=== PATIENT | female | born 1960 | race Two or more races ===

== ENCOUNTER 2018-01-01 22:30 | Inpatient (IN) | payer OTHER, MEDICAID ==
[2018-01-02] MEDS ORDERED: LORazepam 0.5 MG TAB PO PRN (02:50)
[2018-01-02] MEDS ORDERED: MAGNESIUM HYDROXIDE 30 ML UDCUP PO PRN (02:50)
[2018-01-02] MEDS ORDERED: MAG HYDROX/AL HYDROX/SIMETH 30 ML UDCUP PO PRN (02:50)
[2018-01-02] MEDS ORDERED: OLANZapine DISINTEGR 5 MG TAB PO PRN (02:50)
[2018-01-02] MEDS ORDERED: NICOTINE POLACRILEX 2 MG GUM B PRN (02:50)
[2018-01-02] MEDS: ACETAMINOPHEN 325 MG TAB PO PRN (03:32)
[2018-01-02] MEDS ORDERED: PALIPERIDONE 3 MG TAB.ER PO SCH (10:30)
[2018-01-02] MEDS: risperiDONE 1 MG TAB PO SCH ×2 (12:33→20:47)
--- NOTE | 2018-01-02 13:42 | BCON ---
[f rep st] BEHAVIORAL HEALTH CONSULTATION DATE OF CONSULTATION: 01/02/2018 REASON FOR REFERRAL: Medical clearance for inpatient behavioral health stay. HISTORY OF PRESENT ILLNESS: This patient presented with hearing voices and suicidality to the [facility] in [place]. She had been noncompliant with medications for several months. She was evaluated there and transferred to [facility] unit for further psychiatric care. She complains of continued to hear voices and she reports that she hurts everywhere, including inside. PAST MEDICAL HISTORY: 1. Schizophrenia. 2. Diabetes mellitus type 2. 3. Hypertension. 4. Dyslipidemia. 5. Seizure disorder. PAST SURGICAL HISTORY: She has had a cholecystectomy. She has had ankle surgery, including removal of screws. She has had a hysterectomy. MEDICATIONS: She had been noncompliant, but she has some prescriptions from as recently as August for: 1. Atorvastatin 20 mg at bedtime. 2. Lisinopril 10 mg daily. 3. Risperidone 1 mg at bedtime. 4. Metformin 1000 mg twice daily. 5. Divalproex 1000 mg twice daily. ALLERGIES: There are no known drug allergies. SOCIAL HISTORY: She reportedly has a developmental delay and had been living in a snf, but more recently she was homeless. FAMILY HISTORY: Noncontributory. REVIEW OF SYSTEMS: Other than in HPI, she reports a reduced appetite. She denies nausea, vomiting, constipation, or diarrhea. Review of systems somewhat limited by tearfulness and possibly responding to internal stimuli. Otherwise, a 10-point review of systems is negative. PHYSICAL EXAM: VITAL SIGNS: Blood pressure is 130/65, heart rate is 73, respiratory rate is 14, oxygen saturation is 97% on room air. Her weight is 77.3 kg for a body mass index of 29.2. GENERAL: This is an unkempt, obese woman, appears her chronologic age, dressed in a green hospital smock, cooperative, and in [id number] distress with tearfulness. HEENT: Extraocular movements are intact. Pupils are equal, round, reactive to light. Mucous membranes are moist. Dentition is in poor condition. She has an uncrowded airway, Mallampati class 2. NECK: Supple. HEART: There is a regular rate and rhythm with no murmurs, rubs, or gallops. LUNGS: Clear to auscultation bilaterally. ABDOMEN: Soft, nontender, nondistended with normoactive bowel sounds. EXTREMITIES: There is no cyanosis, clubbing, or edema. NEUROLOGIC: She is alert. Orientation was not checked. She has no focal weakness. Sensation is intact to light touch and cranial nerves 2-12 are grossly intact. LABORATORY STUDIES: From [facility]: Comprehensive metabolic profile revealed a slightly high chloride at 110; otherwise, renal function, electrolytes, and liver function tests were normal. Beta hCG was negative for . CBC was normal, though the differential showed a slightly elevated neutrophil count at 7.69. Toxicology screen in the serum was negative for alcohol, and the urine was negative for any substances of abuse. Urine specific gravity was 1.03, indicating possible dehydration, and her BUN to creatinine ratio was slightly above 20, supporting the possibility of dehydration. ASSESSMENT/RECOMMENDATIONS: 1. Mental health issues pending further evaluation and management per Psychiatry and the mental health team. 2. Diabetes mellitus type 2. Consider reinstating metformin, though her labs did not show an elevated blood sugar at 10:45 in the morning yesterday. With possible dehydration, she may also have had reduced oral intake and so this may represent a fasting glucose and not pre or postprandial. Consider reinstituting metformin a 1000 mg twice daily assuming that her oral intake recovers. 3. Dyslipidemia. Long-term, it would be in her best interest to resume atorvastatin, but similar to consideration of resuming metformin would await normalization of her p.o. intake and discharge plan to a stable environment where she would be able to be compliant. 4. Possible history of seizure disorder with a previous prescription for divalproex. Advise further obtaining outside records to determine whether this was a seizure disorder versus use of valproic acid for behavioral symptom management. Discussed with nurse. I see no medical contraindications to this patient's continued stay on the inpatient behavioral health unit or to any psychiatric medications or procedures. Thank you very much for including me in the care of this patient and please do not hesitate to contact me or the hospitalist service should there be need for further medical evaluation. /[id number]/MODL MTDD
[2018-01-02] MEDS: ATORVASTATIN CALCIUM 20 MG TAB PO SCH (15:19)
[2018-01-02] MEDS: DIVALPROEX NA 500 MG TAB PO SCH ×2 (15:19→20:47)
[2018-01-02] MEDS: metFORMIN HCL 500 MG TAB PO SCH ×2 (15:19→20:47)
[2018-01-02] MEDS: LISINOPRIL 10 MG TAB PO SCH (15:32)
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
[2018-01-04] MEDS: DIVALPROEX NA 500 MG TAB PO SCH ×3 (08:06→19:53)
[2018-01-04] MEDS: ATORVASTATIN CALCIUM 20 MG TAB PO SCH ×2 (08:06→08:49)
[2018-01-04] MEDS: LISINOPRIL 10 MG TAB PO SCH ×2 (08:06→08:49)
[2018-01-04] MEDS: metFORMIN HCL 500 MG TAB PO SCH ×4 (08:07→19:53)
[2018-01-04] MEDS: risperiDONE 1 MG TAB PO SCH ×3 (08:09→19:53)
--- NOTE | 2018-01-04 15:49 | ASMTBHDC ---
Notes Note: Notes: CC spoke with [facility] Liaison (O# [phone]), who reported that [facility] is not excepting new patients at this time. CC to seek outpatient follow up treatment appointments and offer resources to patient for housing support. Date Signed: 01/04/2018 03:48 PM Electronically Signed By:Joan Obrien
--- NOTE | 2018-01-04 16:11 | SOAPPROG ---
SOAP Progress Note Assessment/Plan: LATE ENTRY FOR 01/04/18 DUE TO MEDITECH DOWNTIME Assessment: Schizophrenia. Patient is improving (see subjective/objective note). Continues to report auditory hallucinations and appears to be attending to internal stimuli. Patient could benefit from continued inpatient hospitalization for crisis stabilization, safety, and medication evaluation. Plan: Review psychotropic medication treatment informed consent and recommendations. After reviewing treatment options, risk and benefits of treatment, patient agrees to continue medications. No medication changes at this time as more time is needed to determine ongoing tolerability and efficacy. Plan is to continue to observe patient for response and side effects from medications, and ongoing monitoring and evaluation. Next steps are for patient to meet with healthcare network consultant to plan a safe discharge plan and establish outpatient services for ongoing treatment. Consider discharge on Tuesday if patient is in stable condition, safe, and has a safe discharge plan. PSYCHOTROPIC MEDICATION TREATMENT INFORMED CONSENT and RECOMMENDATIONS: Review nature of condition, diagnosis, and prognosis. Review nature and purpose of psychotropic medication treatment. Review type of psychotropic medications being ordered. Review risk and benefits of psychotropic medication treatment. Review probable length of time patient will need to take medications. Review risk and benefits of not undergoing psychotropic medication treatment. Review alternative treatments to psychotropic medications. Review psychotropic medications contraindications, drug-drug interactions, side effects, and importance of reporting any side effects to a psychiatric provider or nurse during inpatient hospitalization, and upon discharge to patients psychiatric outpatient provider, primary care provider, or other health personal care worker. Review importance of asking a nurse, psychiatric provider, or primary care provider any questions or problems concerning the psychotropic medications. Verify patient understands the information that has been provided, and understands, accepts, and agrees to psychotropic medications. Review patients safety plan and importance of patient to report to staff while hospitalized if patient is ever a danger to self/others, or unable to care for self, and upon discharge, the importance for patient to contact [facility] or [facility], or go to the nearest emergency room, if patient is ever a danger to self/others, or unable to care for self. Recommend that upon discharge patient establish medication management treatment with a psychiatric provider, establishes routine therapy appointments, and follow-up with primary care provider. Verify patient understands and agrees to these recommendations. 01/04/18 16:11 Subjective: Following up with patient for evaluation of psychosis and safety. Patient reports, Doing a little bit better. Patient expresses the following psychiatric symptoms continued auditory hallucinations, and reports has improved since admission. Patient states taking medications as prescribed, tolerating medications with no report of side effects, and with fair response for psychotic symptoms. Patient states she has been attending groups. Patient describes sleeping about 8 hours of sound and uninterrupted sleep last night and reports feeling rested. The patient describes her appetite as good, and describes eating all meals. Patient reports her mood as okay and states this is an improvement since admission. Patient denies SI/HI and reports last having SI prior to her admission. Patient reports continued auditory hallucinations, and denies command hallucinations. Objective: Vital Signs Temp Pulse Resp BP Pulse Ox 36.6 C 81 14 142/65 H 95 01/03/18 06:00 01/03/18 06:00 01/03/18 06:00 01/03/18 06:00 01/03/18 06:00 Treatment team report: Consulted with treatment team staff for update on patients progress in treatment. Nurses report patient is taking medications as prescribed, is tolerating medications without report of side effects. Nurses report patient has expressed the following psychiatric symptoms auditory hallucinations. Staff reports patient slept 9 hours last night and slept throughout the night. Patient is eating all meals. Patient denies SI/HI, visual hallucinations, and delusions. Patient does not express any other psychiatric symptoms at this time. Staff reports they have noticed an improvement in the patients presentation since admission, most notable attending to ADLs and no longer tearful. With regard to discharge planning, family day care worker reports he is working on setting up referrals and resources for patient as she will likely discharge homeless. Patient is currently improving, tolerating medications with no reports of side effects, and with fair response for symptoms. Patient shows slight treatment response as of today. Patient continues to exhibit symptoms of psychosis-- notably auditory hallucinations. Symptoms continue at less frequency and less intensity, and some improvement noted. The patient is a well-nourished, female, looking older than chronological age. Attire is appropriate, dress is hospital garb, and is neat. Grooming status is disheveled. Ambulation is independent. Gait is normal and coordinated. Posture is normal. Eye contact is appropriate. Motor activity is appropriate. Attitude is cooperative. Patient appears attentive and relates well to this interviewer. Language production is unspontaneous and requires several prompts in order to elicit answers to interview questions. R/R/V are normal. Rate is hesitant, slowed. Latency of response is prolonged, with sad tone, and low volume, and monosyllabic. Articulation is mumbled with poverty of speech noted likely negative symptoms of schizophrenia. Patient reports mood as okay with blunted and constricted affect that is incongruent with mood. Patients thought process is linear and logical, with some thought blocking. Associations are connected. The flow is goal fragmented with thought blocking. Patient does not report suicidal/homicidal thoughts, ideas, or plans. Patient reports auditory, denies visual hallucinations. Patient denies delusions. Patient does appear to be attending to internal stimuli. Patient is oriented to person. Attention and concentration are adequate. Insight is poor. Judgment is poor. Cognitive: unable to appropriately assess at this time. Patient does not report undesirable side effects from the medications. - Time Spent With Patient Time Spent With Patient: 20 minutes, met with patient individually. - Pending Discharge Pending Discharge Within 24 Hours: No Pending Discharge Within 48 Hours: No ICD10 Worksheet Patient Problems: Problems Problem Status Onset Homelessness Acute Schizophrenia, acute Acute
--- NOTE | 2018-01-04 16:20 | SOAPPROG ---
SOAP Progress Note Assessment/Plan: Assessment: Schizophrenia. Patient is improving (see subjective/objective note). Continues to report auditory hallucinations and appears to be attending to internal stimuli. Patient could benefit from continued inpatient hospitalization for crisis stabilization, safety, and medication evaluation. Plan: Review psychotropic medication treatment informed consent and recommendations. After reviewing treatment options, risk and benefits of treatment, patient agrees to continue medications. No medication changes at this time as more time is needed to determine ongoing tolerability and efficacy. Plan is to continue to observe patient for response and side effects from medications, and ongoing monitoring and evaluation. Next steps are for patient to meet with social worker palliative care to plan a safe discharge plan and establish outpatient services for ongoing treatment. Consider discharge on Tuesday if patient is in stable condition, safe, and has a safe discharge plan. PSYCHOTROPIC MEDICATION TREATMENT INFORMED CONSENT and RECOMMENDATIONS: Review nature of condition, diagnosis, and prognosis. Review nature and purpose of psychotropic medication treatment. Review type of psychotropic medications being ordered. Review risk and benefits of psychotropic medication treatment. Review probable length of time patient will need to take medications. Review risk and benefits of not undergoing psychotropic medication treatment. Review alternative treatments to psychotropic medications. Review psychotropic medications contraindications, drug-drug interactions, side effects, and importance of reporting any side effects to a psychiatric provider or nurse during inpatient hospitalization, and upon discharge to patients psychiatric outpatient provider, primary care provider, or other health healthcare prof. Review importance of asking a nurse, psychiatric provider, or primary care provider any questions or problems concerning the psychotropic medications. Verify patient understands the information that has been provided, and understands, accepts, and agrees to psychotropic medications. Review patients safety plan and importance of patient to report to staff while hospitalized if patient is ever a danger to self/others, or unable to care for self, and upon discharge, the importance for patient to contact [facility] or [facility], or go to the nearest emergency room, if patient is ever a danger to self/others, or unable to care for self. Recommend that upon discharge patient establish medication management treatment with a psychiatric provider, establishes routine therapy appointments, and follow-up with primary care provider. Verify patient understands and agrees to these recommendations. 01/04/18 16:19 Subjective: Following up with patient for evaluation of psychosis and safety. Patient reports, Not doing too good today. Patient expresses the following psychiatric symptoms continued auditory hallucinations, and reports has improved a little bit since admission. Patient states taking medications as prescribed, tolerating medications with no report of side effects, and with fair response for psychotic symptoms. Patient states she has been attending groups. Patient describes sleeping about 8 hours of sound and uninterrupted sleep last night and reports feeling rested. The patient describes her appetite as good, and describes eating all meals. Patient reports her mood as okay and states this is an improvement since admission. Patient denies SI/HI and reports last having SI prior to her admission. Patient reports continued auditory hallucinations, and denies command hallucinations. Objective: Vital Signs Temp Pulse Resp BP Pulse Ox 36.6 C 81 14 142/65 H 95 01/03/18 06:00 01/03/18 06:00 01/03/18 06:00 01/03/18 06:00 01/03/18 06:00 Treatment team report: Consulted with treatment team staff for update on patients progress in treatment. Nurses report patient is taking medications as prescribed, is tolerating medications without report of side effects. Nurses report patient has expressed the following psychiatric symptoms auditory hallucinations. Staff reports patient slept 9 hours last night and slept throughout the night. Patient is eating all meals. Patient denies SI/HI, visual hallucinations, and delusions. Patient does not express any other psychiatric symptoms at this time. Staff reports they have noticed an improvement in the patients presentation since admission, most notable attending to ADLs and no longer tearful. With regard to discharge planning, career specialist reports he is working on setting up referrals and resources for patient as she will likely discharge homeless. Patient is currently improving, tolerating medications with no reports of side effects, and with fair response for symptoms. Patient shows slight treatment response as of today. Patient continues to exhibit symptoms of psychosisnotably auditory hallucinations. Symptoms continue at less frequency and less intensity, and some improvement noted. The patient is a well-nourished, female, looking older than chronological age. Attire is appropriate, dress is hospital garb, and is neat. Grooming status is disheveled. Ambulation is independent. Gait is normal and coordinated. Posture is normal. Eye contact is appropriate. Motor activity is appropriate. Attitude is cooperative. Patient appears attentive and relates well to this interviewer. Language production is unspontaneous and requires several prompts in order to elicit answers to interview questions. R/R/V are normal. Rate is hesitant, slowed. Latency of response is prolonged, with sad tone, and low volume, and monosyllabic. Articulation is mumbled with poverty of speech noted likely negative symptoms of schizophrenia. Patient reports mood as okay with blunted and constricted affect that is incongruent with mood. Patients thought process is linear and logical, with some thought blocking. Associations are connected. The flow is goal fragmented with thought blocking. Patient does not report suicidal/homicidal thoughts, ideas, or plans. Patient reports auditory, denies visual hallucinations. Patient denies delusions. Patient does appear to be attending to internal stimuli. Patient is oriented to person. Attention and concentration are adequate. Insight is poor. Judgment is poor. Cognitive: unable to appropriately assess at this time. Patient does not report undesirable side effects from the medications. - Time Spent With Patient Time Spent With Patient: 30 minutes, met with patient individually. - Pending Discharge Pending Discharge Within 24 Hours: No Pending Discharge Within 48 Hours: No ICD10 Worksheet Patient Problems: Problems Problem Status Onset Homelessness Acute Schizophrenia, acute Acute
[2018-01-04] MEDS: LORazepam 0.5 MG TAB PO PRN (18:16)
[2018-01-05] MEDS: DIVALPROEX NA 500 MG TAB PO SCH ×2 (08:07→19:58)
[2018-01-05] MEDS: metFORMIN HCL 500 MG TAB PO SCH ×2 (08:07→19:59)
[2018-01-05] MEDS: risperiDONE 1 MG TAB PO SCH (08:07)
[2018-01-05] MEDS: ATORVASTATIN CALCIUM 20 MG TAB PO SCH (08:08)
[2018-01-05] MEDS: LISINOPRIL 10 MG TAB PO SCH (08:08)
[2018-01-05] MEDS ORDERED: risperiDONE 2 MG TAB PO ONE (11:01)
--- NOTE | 2018-01-05 11:13 | SOAPPROG ---
SOAP Progress Note Assessment/Plan: Assessment: Schizophrenia. Patient is improving (see subjective/objective note). Continues to report auditory hallucinations and appears to be attending to internal stimuli. Patient could benefit from continued inpatient hospitalization for crisis stabilization, safety, and medication evaluation. Plan: Review psychotropic medication treatment informed consent and recommendations. After reviewing treatment options, risk and benefits of treatment, patient agrees to continue medications with following changes: increase Risperidone HS dose to 2 mg. No medication changes at this time as more time is needed to determine ongoing tolerability and efficacy. Plan is to continue to observe patient for response and side effects from medications, and ongoing monitoring and evaluation. Next steps are for patient to meet with caretaker grounds to plan a safe discharge plan and establish outpatient services for ongoing treatment. Consider discharge on Tuesday if patient is in stable condition, safe, and has a safe discharge plan. PSYCHOTROPIC MEDICATION TREATMENT INFORMED CONSENT and RECOMMENDATIONS: Review nature of condition, diagnosis, and prognosis. Review nature and purpose of psychotropic medication treatment. Review type of psychotropic medications being ordered. Review risk and benefits of psychotropic medication treatment. Review probable length of time patient will need to take medications. Review risk and benefits of not undergoing psychotropic medication treatment. Review alternative treatments to psychotropic medications. Review psychotropic medications contraindications, drug-drug interactions, side effects, and importance of reporting any side effects to a psychiatric provider or nurse during inpatient hospitalization, and upon discharge to patients psychiatric outpatient provider, primary care provider, or other health care giver. Review importance of asking a nurse, psychiatric provider, or primary care provider any questions or problems concerning the psychotropic medications. Verify patient understands the information that has been provided, and understands, accepts, and agrees to psychotropic medications. Review patients safety plan and importance of patient to report to staff while hospitalized if patient is ever a danger to self/others, or unable to care for self, and upon discharge, the importance for patient to contact [facility] or [facility], or go to the nearest emergency room, if patient is ever a danger to self/others, or unable to care for self. Recommend that upon discharge patient establish medication management treatment with a psychiatric provider, establishes routine therapy appointments, and follow-up with primary care provider. Verify patient understands and agrees to these recommendations. 01/05/18 11:12 Subjective: Following up with patient for evaluation of psychosis and safety. Patient reports, Okay. Patient expresses the following psychiatric symptoms continued auditory hallucinations, and reports has improved since admission. Patient states taking medications as prescribed, tolerating medications with no report of side effects, and with fair response for psychotic symptoms. Patient states she has been attending groups. Patient describes sleeping about 8 hours of sound and uninterrupted sleep last night and reports feeling rested. The patient describes her appetite as good, and describes eating all meals. Patient reports her mood as okay and states this is an improvement since admission. Patient denies SI/HI and reports last having SI prior to her admission. Patient reports continued auditory hallucinations (improved since admission), and denies command hallucinations. Objective: Vital Signs Temp Pulse Resp BP Pulse Ox 36.7 C 80 15 98/57 L 95 01/05/18 00:30 01/05/18 00:30 01/05/18 00:30 01/05/18 00:30 01/05/18 00:30 Treatment team report: Consulted with treatment team staff for update on patients progress in treatment. Nurses report patient is taking medications as prescribed, is tolerating medications without report of side effects. Nurses report patient has expressed the following psychiatric symptoms auditory hallucinations. Staff reports patient slept 9 hours last night and slept throughout the night. Patient is eating all meals. Patient denies SI/HI, visual hallucinations, and delusions. Patient does not express any other psychiatric symptoms at this time. Staff reports they have noticed an improvement in the patients presentation since admission, most notable attending to ADLs (patient is showering, dressing, eating meals, and interacting with staff) and no longer tearful. With regard to discharge planning, toddler caregiver reports he is working on setting up referrals and resources including placement for respite bed for patient as she will likely discharge homeless. Patient is currently improving, tolerating medications with no reports of side effects, and with fair response for symptoms. Patient shows slight treatment response as of today. Patient continues to exhibit symptoms of psychosisnotably auditory hallucinations. Symptoms continue at less frequency and less intensity, and some improvement noted. The patient is a well-nourished, female, looking older than chronological age. Attire is appropriate, dress is hospital garb, and is neat. Grooming status is disheveled. Ambulation is independent. Gait is normal and coordinated. Posture is normal. Eye contact is appropriate. Motor activity is appropriate. Attitude is cooperative. Patient appears attentive and relates well to this interviewer. Language production is unspontaneous and requires several prompts in order to elicit answers to interview questions. R/R/V are normal. Rate is hesitant, slowed. Latency of response is prolonged, with sad tone, and low volume, and monosyllabic. Articulation is mumbled with poverty of speech noted likely negative symptoms of schizophrenia. Patient reports mood as okay with blunted and constricted affect that is incongruent with mood. Patients thought process is linear and logical, with some thought blocking. Associations are connected. The flow is goal fragmented with thought blocking. Patient does not report suicidal/homicidal thoughts, ideas, or plans. Patient reports auditory, denies visual hallucinations. Patient denies delusions. Patient does appear to be attending to internal stimuli. Patient is oriented to person. Attention and concentration are adequate. Insight is poor. Judgment is poor. Cognitive: unable to appropriately assess at this time. Patient does not report undesirable side effects from the medications. - Time Spent With Patient Time Spent With Patient: 30 minutes, met with patient individually. - Pending Discharge Pending Discharge Within 24 Hours: No Pending Discharge Within 48 Hours: No ICD10 Worksheet Patient Problems: Problems Problem Status Onset Homelessness Acute Schizophrenia, acute Acute
--- NOTE | 2018-01-05 13:50 | ASMTBHDC ---
Notes Note: Notes: CC speaks with Bonita Lundy , client's CW from [facility] regarding client's bed, etc. She noted that client could come back to stay and would have a bed available for her tomorrow. Client indicated that she would like to go back to [facility] to stay, etc. She noted, "if she comes earlier the better." CC notified [facility] [employer] and will coordinate D/C tomorrow. Clt will be given [facility] bus pass to get to [place] and will follow up with her CW, who will assist with follow up mental health and health services, etc. CC provided all necessary contact information to CW, etc. Plan to D/C tomorrow to [facility] before noon. Date Signed: 01/05/2018 01:50 PM Electronically Signed By:Rakesh Deluca
[2018-01-05] MEDS: ACETAMINOPHEN 325 MG TAB PO PRN (17:20)
[2018-01-05] MEDS: LORazepam 0.5 MG TAB PO PRN (17:20)
[2018-01-05] MEDS ORDERED: risperiDONE 2 MG TAB PO SCH ×2 (21:00)
[2018-01-06 06:49] VITALS: BP 127/59
[2018-01-06] MEDS: metFORMIN HCL 500 MG TAB PO SCH (08:24)
[2018-01-06] MEDS: ATORVASTATIN CALCIUM 20 MG TAB PO SCH (08:24)
[2018-01-06] MEDS: DIVALPROEX NA 500 MG TAB PO SCH (08:24)
[2018-01-06] MEDS: LISINOPRIL 10 MG TAB PO SCH (08:24)
[2018-01-06] MEDS ORDERED: risperiDONE 1 MG TAB PO SCH (09:00)
--- NOTE | 2018-01-06 11:27 | ASDISCHSUM ---
Discharge Information Plan Status:Psych Placement/Petitioned Medically Cleared to Leave: Discharge Date:01/06/2018 10:56 AM CM D/C Disposition:Other (Not listed) ADT D/C Disposition:Home, Routine, Self-Care Projected Discharge Date:01/06/2018 02:00 PM Transportation at D/C:Family Discharge Delay Reason: Follow-Up Date:01/06/2018 Discharge Slot:1 - 8:01 am - 12:00 noon Final Diagnosis: Placement Information Referral Type:Outpatient Center/Clinic Referral ID:[id number] Provider Name:[facility] Melida Christensen Address 1:[address]. Phone Number: Address 2: Fax Number: City:[place] Selection Factors: State:[place] Patient Contact Information Contact Name:GERARDOTIRSOSTEPHANIAURY Relationship:Father Address:[address] Home Phone: City:[place] Alternate Phone: [facility]/Zip Code:[place] [address] Email: Financial Information Financial Class:Medicare Primary Plan Desc:[facility]ICARE [facility] INPATIENT Primary Plan Number:[id number] Secondary Plan Desc:[place] Secondary Plan Number:[id number] Assessment Information Behavioral Health Discharge Planning Note Notes Note: Notes: CC spoke with [facility] Liaison (O# [phone]), who reported that [facility] is not excepting new patients at this time. CC to seek outpatient follow up treatment appointments and offer resources to patient for housing support. Date Signed: 01/04/2018 03:48 PM Electronically Signed By:Joan Obrien [facility] Discharge Planning Note Notes Note: Notes: CC speaks with Bonita Lundy , client's CW from [facility] regarding client's bed, etc. She noted that client could come back to stay and would have a bed available for her tomorrow. Client indicated that she would like to go back to [facility] to stay, etc. She noted, "if she comes earlier the better." CC notified OUTREACH ANALYST and will coordinate D/C tomorrow. Clt will be given Regional bus pass to get to [place] and will follow up with her CW, who will assist with follow up mental health and health services, etc. CC provided all necessary contact information to CW, etc. Plan to D/C tomorrow to [facility] before noon. Date Signed: 01/05/2018 01:50 PM Electronically Signed By:Rakesh Deluca Intervention Information
--- NOTE | 2018-01-06 11:29 | ASMTBHDC ---
Notes Note: Notes: CC confirmed that client discharged to father who was able to drive client to [facility] in [place] to meet with CW (Bonita Lundy) for follow up care and mental health coordination. Date Signed: 01/06/2018 11:28 AM Electronically Signed By:Rakesh Deluca
--- NOTE | 2018-01-06 22:52 | BDS ---
[f rep st] BEHAVIORAL HEALTH DISCHARGE SUMMARY REASON FOR ADMISSION: The patient presented with increased command auditory hallucinations and suicidality to the [facility] Emergency Department in [place]. She had been noncompliant with medications for several months. She was evaluated there and transferred to [facility] inpatient [facility] Unit for further psychiatric care. The patient was admitted involuntarily on an M1 hold due to being a danger to herself and being gravely disabled. The patient was admitted for safety crisis stabilization and medication management. ADMITTING DIAGNOSES: Schizophrenia, acute, homelessness, diabetes type 2, hypertension, dyslipidemia, seizure disorder. ADMISSION PHYSICAL EXAM: The patient was seen by Dr. Kent for medical clearance for inpatient Behavioral Health stay. For further information regarding the health consultation, please refer to this consultation note dated 01/02/2018. Dr. Kent reported that he saw no medical contraindications to the patient's continued stay on the inpatient behavioral health unit or to any psychiatric medications or procedures. ADMISSION LABS: From [facility], comprehensive metabolic profile revealed a slightly high chloride at 110. Otherwise, renal function, electrolytes and liver function tests were normal. HCG was negative for . CBC was normal, though the differential showed a slightly elevated neutrophil count at 7.69. Toxicology screen in the serum was negative for alcohol and the urine was negative for any substances of abuse. Urine specific gravity was 1.03, indicating possible dehydration and her BUN to creatinine ratio was slightly above 20 supporting the possibility of dehydration. Hemoglobin A1c was 5.9. HOSPITAL COURSE: The most prominent symptoms while the patient was hospitalized for command auditory hallucinations. These symptoms were targeted during hospitalization. Treatment modalities utilized were as follows: Milieu and group therapy. Risperidone 1 mg p.o. twice daily was started to target psychosis symptoms; notably, auditory hallucinations. The medication was tolerated with no report of side effects and with good response. The patient has improved considerably with no signs of psychiatric symptoms and no psychiatric symptoms expressed at time of discharge. The patient reports she has improved since admission. States to be in stable condition. Feels safe to discharge and contracts for safety. Patient's response to treatment was good. There were no adverse or unexpected results of treatment. The patient was safe throughout her stay, active in her treatment. She engaged in groups and was appropriate with staff and other patients. The treatment team consensus is the patient is in stable condition and is safe to discharge today. CONDITION AT DISCHARGE: Patient is in stable condition and is no longer a danger to self or others, and is not gravely disabled due to mental illness. Patient is no longer in need of inpatient level of care, and can be safely and effectively treated within the community. The patients level of risk at time of discharge is low based on the risk assessment below following this discharge summary. MSE: The patient is casually dressed and with good hygiene, and looks stated age. Patient is sitting, posture is upright, and position is relaxed. Patient appears awake, alert, and responds appropriately and reasonably during interview. Patient is engaged, relates well to interviewer, and emotional facial expression is appropriate to situation and changes appropriately with topic. Patient is cooperative, makes comfortable eye contact, and movements are voluntary, deliberate, coordinated, and smooth and even with no inappropriate movements. Patient makes laryngeal sounds effortlessly and shares conversation appropriately; pace of conversation is appropriate, and stream of talking is fluent; articulation is clear and understandable; word choice is effortless and appropriate for education level; completes sentences, occasionally pausing to think; rate and volume are appropriate for interview and setting. Patient reports mood as euthymic. Patients affect is stable with full variable range, congruent with mood, and appropriate to speech and circumstances. Patient has linear and logical thinking, with no loose associations, tangential thought, thought blocking, concrete thinking, or any other signs of formal thought disorder. Patient denies suicidal and homicidal ideation, and denies hallucinations and delusions. Patient appears to be a reliable historian with sound judgement and good insight into current condition. Patient has no apparent dysfunction in recent or remote memory noted , and no evidence of gross cognitive dysfunction noted at any point during the interview. DISCHARGE DIAGNOSIS: Schizophrenia, acute, homelessness, diabetes type 2, hypertension, dyslipidemia, seizure disorder. DISCHARGE MEDICATIONS: The patient was discharged on the following medications , and 1 month or 30 day supplies of each medication was provided through prescriptions. These medications and prescriptions were reviewed with the patient prior to her discharging: Atorvastatin calcium or Lipitor 20 mg p.o. at bedtime, Depakote ER 1000 p.o. twice daily, lisinopril 10 mg p.o. daily, metformin 1000 mg p.o. twice daily, risperidone 1 mg p.o. twice daily. DISPOSITION: Patient left hospital independently and voluntarily with her father and the father plans to drive the patient back to [facility] in [place], where the patient was previously staying. The [facility] is aware the patient will be returning and has a bed available for the patient. [facility] also has Case Management that will work with the patient on making sure she makes it to all her outpatient appointments as scheduled and as needed. FOLLOWUP: sports medicine coordinator reports the appropriate outpatient follow-up services have been established and outpatient appointments have been scheduled. The patient received written instructions with times and dates of outpatient follow-up appointments. The following follow-up recommendations were provided to the patient at discharge: Continue psychotropic medications as prescribed and attend appointments as scheduled. Report any side effects to a psychiatric outpatient provider, a primary care provider, or other health md do resident urgent care. Address any questions or problems concerning the psychotropic medications with a psychiatric outpatient provider, a primary care provider, or other health md do resident urgent care. Contact [facility] or [facility], or go to the nearest emergency room, if you are ever a danger to yourself/others, or unable to care for yourself. As soon as possible, establish a routine medication management treatment with a psychiatric provider, establish routine therapy appointments, and follow-up with a primary care provider. LEGAL COURSE: The patient was admitted on an M1 hold. The patient became voluntary during hospitalization and discharged independently and voluntarily today. ATTITUDE AT TIME OF DISCHARGE: The patients attitude was positive at time of discharge, and patient reports looking forward to discharging today and returning to [facility] in [place]. The patient reports she feels safe to discharge, is no longer a danger to himself/herself or others, is in stable condition, and contracts for safety. Patient states she will continue medications as prescribed, and establish medication management treatment with an outpatient provider after discharge. Patient reports he/she understands the information that has been provided to her, and she understands, accepts, and agrees to psychotropic medications. This interviewer met with patient's father at patient's time of admission, and her father reports he agrees with patient discharging today, and states she is safe to discharge and return to [facility] in [place]. PENDING LABS: There were no pending labs or studies at time of discharge. ADVANCED DIRECTIVES: There were no advanced directives on file and patient was full code during her stay. The following psychotropic medication treatment informed consent and recommendations were provided to the patient at time of discharge. Patient reports she understands, accepts, and agrees to the information that has been provided. PSYCHOTROPIC MEDICATION TREATMENT INFORMED CONSENT and RECOMMENDATIONS: Review nature of condition, diagnosis, and prognosis. Review nature and purpose of psychotropic medication treatment. Review type of psychotropic medications being prescribed. Review risk and benefits of psychotropic medication treatment. Review probable length of time will need to take medications. Review risk and benefits of not undergoing psychotropic medication treatment. Review alternative treatments to psychotropic medications. Review psychotropic medications contraindications, side effects, and importance of reporting any side effects to a psychiatric provider, primary care provider, or other health md do resident urgent care. Review importance of her asking a psychiatric provider or primary care provider any questions or problems concerning the psychotropic medications. Review importance of reporting to a psychiatric provider, primary care provider, or other health md do resident urgent care if she plans to or becomes . Review safety plan and the importance to contact [facility] or [facility] , or go to the nearest emergency room, if ever a danger to yourself/others, or unable to care for yourself. Recommend upon discharge to establish routine medication management treatment with a psychiatric provider, establish routine therapy appointments, and follow-up with a primary care provider. Verify patient understands, accepts, and agrees to the information that has been provided. /[id number]/MODL MTDD
== END 2018-01-06 10:56 | disposition home or self-care (01) | DRG 885 ==
LOC: BBEH 01-02 02:20
PROVIDERS: ADMIT Registered Nurse; ATTEND Registered Nurse
DX: F20.9 Schizophrenia, unspecified (principal); E11.9 Type 2 diabetes mellitus without complications; I10 Essential (primary) hypertension; E78.5 Hyperlipidemia, unspecified; G40.909 Epilepsy, unspecified, not intractable, without status epilepticus; F89 Unspecified disorder of psychological development; Z59.0 Homelessness